=== PATIENT | male | born 2000 | race Caucasian/White ===

== ENCOUNTER 2024-05-03 19:11 | Emergency (ER) | payer SELFPAY ==
[2024-05-03 19:13] VITALS: BP 127/99
--- NOTE | 2024-05-03 20:00 | ED.GENMED ---
History of Present Illness
General
Chief Complaint: Crisis Evaluation
Source: patient and family
Exam Limitations: none
Time Seen by Provider: 05/03/24 19:26
Nursing documentation reviewed up to this point in time: agreed with
History of Present Illness
History of Present Illness:
23-year-old male history of autism and depression was hospitalized over the summer to [place], treated with meds and then outpatient therapy has been noncompliant with his meds and therapy, recently seen for intake at [facility], family is concerned
because he is not working not doing well at home using marijuana, apparently made some reference to harming himself with no specific plan
Here he denies being suicidal denies hearing voices denies depression does not appear to be hallucinating has been cooperative for the most part history obtained through the patient also through his mother who brought him in
Past History
Past History
ED Past Medical History: None
ED Past Surgical History: None
Social History
Tobacco: Smoker
Alcohol: Occasional
Drug: None
Personal: Single
Living: with family
Employment: Employed
Phy Exam
Physical Exam
Physical Exam:
Physical Exam
General: no apparent distress, not acutely ill
Neck: No jaundice
Heart: Regular
Lungs: no acute respiratory distress. clear bilaterally
Neuro: alert and oriented. no focal neurological deficits
Skin: no rash
Psychiatric: Not intoxicated cooperative denies suicidal thoughts
Extremities: no edema.
Course
Orders/Labs/Results
Orders:
Orders
05/03/24 19:16
Crisis Consult Urgent
Reason for Consult: per mom, pt stopped all meds and therapy
Comment: hx inpatient
05/03/24 20:06
ED Special Safety Observation ONCE
Observation level: Intermittent Observation
Vital Signs
Initial and Last Documented VS:
Initial Vital Signs
Temp Pulse Resp BP Pulse Ox
98.5 F 98 16 127/99 100
05/03/24 19:13 05/03/24 19:13 05/03/24 19:13 05/03/24 19:13 05/03/24 19:13
Last Documented Vital Signs
Temp Pulse Resp BP Pulse Ox
98.5 F 98 16 127/99 100
05/03/24 19:13 05/03/24 19:13 05/03/24 19:13 05/03/24 19:13 05/03/24 19:13
*Critical Care Note
Total Time (30-74mins, 75-104mins- exclusive of procedures): Not Applicable
Update Note
Update Note:
dw crisis
outpt f/u arranged
ED Attending Note
-
Portions of this chart may have been created with voice recognition software.� Occasional wrong word or��sound alike� substitutions may have occurred due to the inherent limitations of voice recognition software.
Discharge Plan
Departure
Patient Disposition: Home (Routine Discharge)
Date of Disposition: 05/03/24
Time of Disposition: 20:28
Patient with high blood pressure during this ER visit?: No
Condition: Good
Discharge Problem:
Depression
Instructions: Depression, Adult (DC)
Prescriptions:
No Action
No Current Medications
0
Referrals:
Kimmy Groves DO [Family Provider] -
Activity Restrictions/Additional Instructions:
Follow-up with the resources provided to you by [facility]
Interventions
Interventions:
*Risk Screen - Suicide Last Done: 05/03/24 19:13
*General Assessment Last Done: 05/03/24 19:13
*Neglect/Abuse Screening Last Done: 05/03/24 19:13
ED-Psychological Assessment Last Done: 05/03/24 20:07
Discharge Date and Time
Print Language: IRISH
== END 2024-05-03 20:41 | disposition home or self-care (01) ==
LOC: EMR 19:11
PROVIDERS: EMERGENCY PHYSICIAN Emergency Medicine; FAMILY PHYSICIAN Family Medicine
DX: F32.A Depression, unspecified (principal); F84.0 Autistic disorder; F17.200 Nicotine dependence, unspecified, uncomplicated
CPT/HCPCS: 99282